=== PATIENT | female | born 2000 | race Caucasian/White ===

== ENCOUNTER 2022-01-03 22:02 | Emergency (ER) | payer OTHER ==
[~2022-01-03] VITALS: Ht 162.6 cm; Wt 59.0 kg
[2022-01-04] MEDS ORDERED: ONDANSETRON ODT8 MG PO (01:13)
== END 2022-01-04 01:37 | disposition home or self-care (01) ==
LOC: ED 22:02
DX: B34.9 Viral infection, unspecified (principal)
CPT/HCPCS: 36415; 80048; 85025; 87502; 96374; 96375; 99283-25; J1885; J2405; U0003

== ENCOUNTER 2022-04-02 02:05 | Emergency (ER) | payer OTHER ==
[~2022-04-02] VITALS: Ht 162.6 cm; Wt 56.2 kg
[~2022-04-02 02:05] MED LIST: ONDANSETRON ODT8 MG PO
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
[2022-04-02] MEDS ORDERED: HYDROXYZINE HCL25 MG PO (02:22)
[2022-04-02] MEDS ORDERED: PROPRANOLOL HCL10 MG PO (02:23)
[2022-04-02] MEDS ORDERED: TRAZODONE HCL50 MG PO (02:23)
[2022-04-02] MEDS ORDERED: RISPERIDONE2 MG PO (02:23)
[2022-04-02] MEDS ORDERED: SERTRALINE HCL50 MG PO (02:23)
--- NOTE | 2022-04-02 07:24 | EKG ---
[facility] [address] [facility] [place] [address] Signed Normal sinus rhythm Normal ECG No previous ECGs available Confirmed by CHEYANNE RONDON MD ([id number]) on 04/02/2022 7:24:31 AM Electronically Signed By: CHEYANNE RONDON MD 04/02/22723 PATIENT NAME: IZABELA JHAVERI Electrocardiogram DATE OF : [birth year] PHYSICIAN: CHEYANNE RONDON MD REPORT #: [id number] REPORT IS CONFIDENTIAL AND NOT TO BE RELEASED WITHOUT AUTHORIZATION
== END 2022-04-02 03:12 | disposition home or self-care (01) ==
LOC: ED 02:05
DX: R07.2 Precordial pain (principal); Z79.899 Other long term (current) drug therapy
CPT/HCPCS: 71046; 93005; 93010; 99285-25

== ENCOUNTER 2022-08-13 23:34 | Emergency (ER) | payer OTHER ==
[~2022-08-13] VITALS: Ht 162.6 cm; Wt 59.0 kg
[~2022-08-13 23:34] MED LIST changes: +HYDROXYZINE HCL25 MG PO; +PROPRANOLOL HCL10 MG PO; +RISPERIDONE2 MG PO; +SERTRALINE HCL50 MG PO; +TRAZODONE HCL50 MG PO
[2022-08-14] MEDS ORDERED: CEPHALEXIN500 M1 PO (00:16)
[2022-08-14] MEDS ORDERED: ATHLETIC FOOT C30 GM TOP (00:16)
[2022-08-14 00:45] VITALS: BP 123/89
== END 2022-08-14 00:47 | disposition home or self-care (01) ==
LOC: ED 23:34
DX: L03.031 Cellulitis of right toe (principal); B35.3 Tinea pedis; Z79.899 Other long term (current) drug therapy
CPT/HCPCS: 99283; A9270

== ENCOUNTER 2023-03-19 13:45 | Emergency (ER) | payer OTHER ==
[~2023-03-19] VITALS: Ht 162.6 cm; Wt 65.9 kg
[~2023-03-19 13:45] MED LIST changes: +ATHLETIC FOOT C30 GM TOP; +BUTALB-ACETAMI1 EAC2 PO; +CEPHALEXIN500 M1 PO; +RISPERIDONE4 MG PO; +SERTRALINE HCL100 MG PO
[2023-03-19] MEDS ORDERED: NITROGLYCERIN 0.4 MG SUBL SL PRN (14:00)
[2023-03-19] MEDS ORDERED: ASPIRIN 81 MG CHEW PO ONE (14:00)
[2023-03-19 14:03] LABS: BASOPHILS 0.9 % (0-2); EOSINOPHILS 1.4 % (0-6); HEMATOCRIT 38.1 % (35.0-50.0); HEMOGLOBIN 12.5 g/dL (12.0-18.0); LYMPHOCYTES 24.2 % (24-44); MCH 28.8 (27-36); MCHC 32.8 g/dl (30-36); MCV 87.7 fl (81-99); MONOCYTES 8.2 % (0-12); NEUTROPHILS 65.3 % (39-80); PLATELET COUNT 272 K/uL (140-440); RBC 4.35 M/ul (4.3-5.7); RDW 12.9 (10.5-15.0)
[2023-03-19 14:20] LABS: ALBUMIN 3.6 g/dL (3.4-5.0); ALBUMIN/GLOBULIN RATIO 0.78 (1.1-2.4); ALKALINE PHOSPHATASE 93 U/L (46-116); ALT (SGPT) 16 U/L (14-59); ANION GAP 13.8 (7-21); AST (SGOT) 10 U/L (15-37); BILIRUBIN, TOTAL 0.1 ng/dL (0.2-1.0); BUN/CREATININE RATIO 10.14 (6.0-28.6); CALCIUM 8.9 mg/dL (8.5-10.1); CARBON DIOXIDE 26 mmol/L (21-32); CHLORIDE 102 mmol/L (98-107); CREATININE, SERUM 0.69 mg/dL (0.55-1.02); GLOMERULAR FILTRATION RATE,EST 127 mL/min (>60); MAGNESIUM 1.9 mg/dL (1.8-2.4); POTASSIUM 3.8 mmol/L (3.5-5.1); PROTEIN, TOTAL 8.2 g/dL (6.4-8.2); UREA NITROGEN 7 mg/dL (7-18)
--- NOTE | 2023-03-20 11:57 | EKG ---
[facility] [address] [facility] [place] [address] Signed Normal sinus rhythm with sinus arrhythmia Normal ECG When compared with ECG of 02-APR-2022 02:34, No significant change was found Confirmed by Althea Salinas MD ([id number]) on 03/20/2023 11:57:01 AM Electronically Signed By: ALTHEA SALINAS 03/20/23 1157 PATIENT NAME: EMILIOIZABELAKiran DE LA CRUZ Electrocardiogram DATE OF : [birth year] PHYSICIAN: ALTHEA SALINAS REPORT #: [id number] REPORT IS CONFIDENTIAL AND NOT TO BE RELEASED WITHOUT AUTHORIZATION
== END 2023-03-19 15:17 | disposition home or self-care (01) ==
LOC: ED 13:45
PROVIDERS: Emergency Medicine
DX: R07.9 Chest pain, unspecified (principal); F32.A Depression, unspecified; F41.9 Anxiety disorder, unspecified; Z79.899 Other long term (current) drug therapy
CPT/HCPCS: 36415; 71045; 80053; 83735; 84484; 84703; 85025; 93005; 93010; 99285-25; A9270

== ENCOUNTER 2023-03-28 00:06 | Emergency (ER) | payer OTHER ==
[~2023-03-28] VITALS: Ht 162.6 cm; Wt 65.9 kg
--- OUTSIDE RECORDS SUMMARY | 2023-03-28 00:14 | XMS ---
PreManage Notification: IZABELA JHAVERI Security Chemistry Lecturer Events No recent Security Events currently on file CRITERIA MET - [facility] - 2 Visits in 30 Days CARE PROVIDERS CARA APARICIO Community Health Worker 07/25/2021-Current PHONE: [phone] -, Pito- Dentist: [employer] PHONE: [phone] -[place]- Dentist: [employer] [facility] PHONE: [phone] Samantha has no Care Guidelines for this patient. E.D. VISIT COUNT (12 MO.) 6 [facility]NA [facility] TOTAL 6 NOTE: Visits indicate total known visits. ED/UCC VISIT TRACKING (12 MO.) 03/28/2023 00:06 [facility] [place] TYPE: Emergency COMPLAINT: - NOSE BLEED 03/19/2023 13:46 [facility] [place] TYPE: Emergency COMPLAINT: - CHEST PAIN DIAGNOSES: - Anxiety disorder, unspecified - Chest pain, unspecified - Depression, unspecified - Other long term acute care registered nurse (current) drug therapy 02/01/2023 18:40 [facility] [place] TYPE: Emergency COMPLAINT: - HEADACHE DIAGNOSES: - Headache, unspecified - Tension-type headache, unspecified, not intractable 08/13/2022 23:35 [facility] [place] TYPE: Emergency COMPLAINT: - RT FOOT INJURY DIAGNOSES: - Cellulitis of right toe - Other long term acute care registered nurse (current) drug therapy - Tinea pedis 04[facility]16/2022 20:59 [facility] [place] [facility] COMPLAINT: - NIPPLE DISCHARGE DIAGNOSES: - Depression, unspecified - Galactorrhea not associated with childbirth - Nipple discharge - Other skilled nursing (current) drug therapy 04/02/2022 02:08 [facility] [place] TYPE: Emergency COMPLAINT: - CP DIAGNOSES: - Other skilled nursing (current) drug therapy - Precordial pain INPATIENT VISIT TRACKING (12 MO.) No inpatient visits to display in this time frame [email or web address]
[2023-03-28 00:37] VITALS: BP 125/75
== END 2023-03-28 00:37 | disposition home or self-care (01) ==
LOC: ED 00:06
DX: R04.0 Epistaxis (principal); F32.A Depression, unspecified; F41.9 Anxiety disorder, unspecified; Z79.899 Other long term (current) drug therapy
CPT/HCPCS: 99283

== ENCOUNTER 2023-10-03 00:37 | Emergency (ER) | payer SELFPAY ==
[~2023-10-03] VITALS: Ht 162.6 cm; Wt 58.0 kg
[2023-10-03 01:35] VITALS: BP 98/63
== END 2023-10-03 01:35 | disposition home or self-care (01) ==
LOC: ED 00:37
DX: R51.9 Headache, unspecified (principal); F32.A Depression, unspecified; F41.9 Anxiety disorder, unspecified; Z79.899 Other long term (current) drug therapy
CPT/HCPCS: 70450

== ENCOUNTER 2023-12-02 20:36 | Emergency (ER) | payer OTHER ==
[~2023-12-02] VITALS: Ht 162.6 cm; Wt 51.0 kg
[2023-12-02 23:15] LABS: BILIRUBIN, URINE NEGATIVE (negative); BLOOD/HGB, URINE NEGATIVE (Negative); KETONE, URINE NEGATIVE (Negative); LEUK ESTERASE, URINE NEGATIVE (negative); NITRITE, URINE NEGATIVE (negative)
[2023-12-02 23:30] LABS: AMPHETAMINES, URINE NEGATIVE (NEGATIVE); BARBITURATES, URINE NEGATIVE (NEGATIVE); BENZODIAZEPINE, URINE NEGATIVE (NEGATIVE); BUPRENORPHINE, URINE NEGATIVE (NEGATIVE); CANNABINOID, URINE POSITIVE (NEGATIVE); COCAINE, URINE NEGATIVE (NEGATIVE); ECSTASY, URINE NEGATIVE (NEGATIVE); FENTANYL, URINE NEGATIVE (NEGATIVE); METHADONE, URINE NEGATIVE (NEGATIVE); OPIATES, URINE NEGATIVE (NEGATIVE); OXYCODONE, URINE NEGATIVE (NEGATIVE); PHENCYCLIDINE, URINE NEGATIVE (NEGATIVE)
[2023-12-02 23:32] LABS: BASOPHILS 0.4 % (0-2); EOSINOPHILS 0.8 % (0-6); HEMOGLOBIN 11.5 g/dL (12.0-18.0); LYMPHOCYTES 36.9 % (24-44); MCHC 32.7 g/dl (30-36); MCV 88.6 fl (81-99); MONOCYTES 6.6 % (0-12); NEUTROPHILS 55.3 % (39-80); PLATELET COUNT 231 K/uL (140-440); RBC 3.95 M/ul (4.3-5.7); RDW 13.6 (10.5-15.0)
[2023-12-02 23:55] LABS: ALBUMIN 3.9 g/dL (3.4-5.0); ALBUMIN/GLOBULIN RATIO 1.03 (1.1-2.4); ANION GAP 10.8 (7-21); BILIRUBIN, TOTAL 0.3 ng/dL (0.2-1.0); BUN/CREATININE RATIO 16.17 (6.0-28.6); CALCIUM 8.5 mg/dL (8.5-10.1); CREATININE, SERUM 0.68 mg/dL (0.55-1.02); MAGNESIUM 2.1 mg/dL (1.8-2.4); POTASSIUM 3.8 mmol/L (3.5-5.1); PROTEIN, TOTAL 7.7 g/dL (6.4-8.2); TSH, 3RD GENERATION 1.297 uIU/mL (0.358-3.740)
[2023-12-03] MEDS ORDERED: KETOROLAC TROMETHAMINE 30 MG/ML VIAL IV ONE (00:15)
[2023-12-03] MEDS ORDERED: LACTATED RINGER'S 1,000 ML IV ONE (00:15)
[2023-12-03] MEDS ORDERED: diphenhydrAMINE HCL 50 MG/ML VIAL IV ONE (00:15)
[2023-12-03] MEDS ORDERED: FAMOTIDINE 20 MG/ 2 ML VIAL IV ONE (00:15)
[2023-12-03] MEDS ORDERED: PROCHLORPERAZINE EDISYLATE 10 MG/2 ML VIAL IV ONE (00:15)
[2023-12-03 01:18] VITALS: BP 95/68
== END 2023-12-03 01:18 | disposition home or self-care (01) ==
LOC: ED 20:36
PROVIDERS: Internal Medicine
DX: R51.9 Headache, unspecified (principal); R10.9 Unspecified abdominal pain
CPT/HCPCS: 36415; 71045; 80053; 80307; 81003; 83690; 83735; 84443; 84703; 85025; 85379; 99284-25; J0780; J1200; J1885; J7121